=== PATIENT | female | born 1950 | race Caucasian/White ===

== ENCOUNTER → 2016-12-31 | Outpatient (CLI) | payer OTHER ==
[~2016-12-31] VITALS: Ht 157.5 cm; Wt 56.7 kg
--- NOTE | ~2016-12-31 | P ---
[facility] [place] [address] PROCEDURE REPORT Name: ADRIANA CHOI Room #: REG RAMAMax Calles#: [id number] Admission: 12/31/16 Attend Phys: Shaq Suarez Discharge: Date of : 46 Report #: [id number] THIS REPORT FOR: //name// CC: Shaq Woodson MD DATE OF PROCEDURE: 12/31/2016. PROCEDURE PERFORMED: Upper endoscopy with biopsies and balloon dilation of pyloric stricture. HISTORY OF PRESENT ILLNESS: The patient is a 66-year-old female who underwent an EGD on 10/12/2016 for nausea, vomiting, weight loss in early satiety, upper endoscopy that day showed a gastric ulcer, large amount of food within the stomach as well as a pyloric stricture. The scope was not able to pass, was able to dilate with a 10, 11, 12 mm balloon, biopsies were negative for H. pylori. The patient had a large amount of vomiting while she was sedated after the balloon dilation was performed. She then underwent a gastric emptying study, which was abnormal and an upper GI study that showed mild dysmotility, retropulsion of , pylorus shows slight pouching which may represent an old ulcer, four duodenal diverticula were noted. I had a long discussion with the patient and her daughter in the office on 11/18/2016. She is feeling better. She gain 10 pounds, but was still having early satiety, we discussed proceeding with repeat EGD to verify ulcer healing as well as reassessing pyloric stricture because of her vomiting, the plan was to do it under general anesthesia. DESCRIPTION OF PROCEDURE: The risks and benefits of the procedure were explained to the patient, those risks including but not limited to bleeding, perforation, the risk of sedation. She understood these risks and gave informed consent. Sedation was given using general anesthesia. Next, using a standard Fujinon upper endoscope, the scope was placed in the patient's mouth and advanced under direct vision through the esophagus, stomach, once again a large amount of food residual was noted throughout the stomach. The pylorus was identified. There was a stricture again noted. I was unable to pass the scope through this area; therefore, I proceeded with the balloon dilation using a 12, 13-1/2 and 15 mm balloon with a maximum of 15. This was held in place for one minute and then deflated. The scope was then able to easily passed through the pylorus at this point, the duodenal bulb, first and second portion were all normal. The scope was then brought back up into the patient's stomach and near the angularis where the ulcer, large previous ulcer was located. This has improved; however, there was a small amount gastritis with a small ulcer remaining, biopsies were again obtained. At this point, the scope was then slowly withdrawn. The esophagus was normal throughout. The scope was withdrawn and the procedure terminated. The patient tolerated the procedure well. IMPRESSION: [address] [address] PROCEDURE REPORT Name: ADRIANA CHOI Room #: ARASH Calles#: [id number] Admission: 12/31/16 Attend Phys: Shaq Suarez Discharge: Date of : 46 Report #: [id number] 1. Large food residual again noted. 2. Pyloric stricture, status post balloon dilation. 3. Gastric ulcer much improved, but a small amount remains with a mild gastritis. RECOMMENDATIONS: 1. Await biopsy results. 2. Observe the patient post-balloon dilation. 3. I will discuss options such as repeating balloon dilations on a p.r.n. basis versus considering surgical options such as a gastrojejunostomy. Thank you for allowing me to participate in her care. By: [id number] Shaq Regan MD /nt
--- NOTE | ~2016-12-31 | S ---
[facility] [address] [place] [address] SURGICAL PATH RPT PROCEDURE Name: ADRIANA CHOI Room #: REG SHARIFA Vicente.#: [id number] Admission: 12/31/16 Date of : 46 Discharge: Report #: [id number] Path Case #: [id number] PATHOLOGY REPORT DRAFT COLLECTION DATE: 12/31/2016 RECEIVED DATE: 12/31/2016 SPECIMEN(S) RECEIVED: Priti
== END | disposition home or self-care (01) ==
LOC: GI 07:32
DX: K29.70 Gastritis, unspecified, without bleeding (principal); K25.9 Gastric ulcer, unspecified as acute or chronic, without hemorrhage or perforation
CPT/HCPCS: 62110; 70005

== ENCOUNTER → 2020-02-22 | Outpatient (CLI) | payer OTHER ==
[~2020-02-22] MED LIST: MULTI VITAMIN1 EACH PO; REGLAN 10 MG TA10 MG PO
== END ==
LOC: LAB 07:39
PROVIDERS: ATTEND Specialist
DX: Z01.812 Encounter for preprocedural laboratory examination (principal); Z20.828 Contact with and (suspected) exposure to other viral communicable diseases

== ENCOUNTER → 2020-02-27 | Outpatient (CLI) | payer OTHER ==
[~2020-02-27] VITALS: Ht 160 cm; Wt 59.0 kg
--- NOTE | 2020-02-28 17:32 | P ---
[facility] [place] [address] PROCEDURE REPORT Name: ADRIANA CHOI Room #: REG SHARIFA Jules.#: [id number] Admission: 02/27/20 Attend Phys: Shaq Suarez Discharge: Date of : 46 Report #: [id number] THIS REPORT FOR: cc: Cora Degroot MD,Shaq Matute MD, MD ~ CC: Shaq Degroot DATE OF SERVICE: 02/27/2020 PROCEDURE PERFORMED: Upper endoscopy with biopsies and balloon dilation of pyloric stricture. HISTORY OF PRESENT ILLNESS: The patient is a 69-year-old female with a long history of intermittent nausea, vomiting, early satiety. She has a known tight pyloric stricture, benign. She has undergone 2 upper endoscopies with dilation by myself; the first one being in 10/2016. At that time, had large food residual and unfortunately had vomiting during the procedure she was dilated. She also had a large ulcer on her angularis at that time, nonbleeding. Biopsies at that time were negative for H. pylori. We then proceeded with a gastric emptying study, which showed delayed emptying in 10/2016. A repeat upper endoscopy was performed on 12/31/2016. At this time, the patient was intubated prior to the procedure. Balloon dilation was once again performed to a maximum of 15 mm. Her previous ulcer was healing, but still noted. Repeat biopsies were again negative for H. pylori. The patient did fairly well, was seen in the office on 01/22/2020 with similar symptoms of abdominal bloating, intermittent nausea, early satiety. Because of this, we discussed repeating upper endoscopy with balloon dilation, which she presents today. She was on PPI therapy in the past, quit that medication. She is now on Pepcid b.i.d. DESCRIPTION OF PROCEDURE: The risks and benefits of the procedure were explained to the patient, those risks including but not limited to bleeding, perforation and the risk of sedation. She understood these risks and gave informed consent. The patient was given a general anesthesia and intubated prior to the procedure. Next, using a standard Olympus upper endoscope, the scope was placed in the patient's mouth and advanced under direct vision through the esophagus into the stomach. The upper and mid esophagus was normal in appearance. In the distal esophagus at the GE junction, grade B erosive esophagitis was noted. Once again entering the stomach, a large food residual was noted throughout most of the stomach. The pylorus was again identified, which was strictured and very tight. I was not able to pass the scope through the stricture. Next, using 12, 13, 15 balloon, the balloon catheter was advanced through the pyloric stricture without difficulty and several balloon dilations were performed, each holding in place for one minute to a maximum of [facility] [address] [place] [address] PROCEDURE REPORT Name: JIMBOADRIANA B Room #: REG SHARIFA Calles#: [id number] Admission: 02/27/20 Attend Phys: Shaq Suarez Discharge: Date of : 46 Report #: [id number] 15 mm. The balloon was deflated. There was a small amount of bleeding, but this stopped spontaneously. At this point, I was able to advance the scope through the stricture without difficulty. Once again, the stricture appears benign. The first and second portions of the duodenum were normal. The scope was then brought back up into the patient's stomach. Again, at the previous ulcer site, an ulcer was noted on the angularis. This was approximately 1.5 cm clean, white-based. Several biopsies of the edge of the ulcer were obtained again today. At this point, the scope was then withdrawn and the procedure terminated. The patient tolerated the procedure well. IMPRESSION: 1. Tight pyloric stricture similar to previous endoscopy, status post balloon dilation, significant improvement after dilation. The scope was able to pass through this area once the area was dilated. 2. Persistent angularis ulcer again noted. 3. Grade B erosive esophagitis. 4. Large food residual again noted in the stomach consistent with partial gastric outlet obstruction picture. RECOMMENDATIONS: 1. Await biopsy results. 2. Observe the patient post-dilation. 3. Recommend daily PPI therapy instead of Pepcid b.i.d. 4. We will once again discuss options with the patient, may consider surgical gastrojejunostomy. Thank you for allowing me to participate in her care. <ELECTRONICALLY SIGNED> By: Shaq Regan MD 02/28/20 1732 [id number] [id number] Shaq Regan MD /nt
--- NOTE | 2020-03-05 11:07 | PATH ---
[facility] [address] [place] [address] PATHOLOGY RPT PROCEDURE Name: ADRIANA CUEVAS Kayli Room #: REG RAMAMax Vicente.#: [id number] Admission: 02/27/20 Date of : 46 Discharge: Report #: [id number] Path Case #: [id number] [facility] Accession Number: [id number] . 01 Material submitted: . stomach - BIOPSY OF GASTRIC ULCER R/O H. PYLORI . 01 Clinical history: . PYLORIC STRICTURE GASTRIC ULCER, DELAYED DIGESTION . 02 Diagnosis: Stomach "biopsy gastric ulcer", endoscopic biopsy: - Gastric antral and oxyntic mucosa with features of reactive gastropathy (chemical gastritis), with moderate to severe acute and chronic inflammation, edema, and focal mucosal surface erosion. - Negative for intestinal metaplasia, dysplasia, and malignancy. - Negative for Helicobacter pylori. (JIMI:alia; 03/03/2020) MBR 03/05/2020 1027 Local . 02 Electronically signed: . Jan Ferro MD, Pathologist NPI- [id number] . 01 Gross description: . The specimen is received in formalin, labeled "Adriana Cuevas BX of gastric ulcer" and consists of 3 fragments of pink-balbuena tissue measuring between 0.4 x 0.3 cm and 0.5 x 0.4 cm which are entirely submitted in A1. (SDY; 02/28/2020) SYU/SYU 02/28/2020 1317 Local . 02 Microscopic: . Immunohistochemical stain results (properly controlled): Helicobacter pylori (block A1) - negative for organisms. . Special stain results (properly controlled); Trichrome (block A1) - negative for significant fibrous connective tissue deposition. [place] red - negative for apple green birefringence under polarizable light. . (NOEMYK:alia; 03/03/2020) . 02 Pathologist provided ICD-10: K29.50, K25.9 . 02 CPT . [address] [address] PATHOLOGY RPT PROCEDURE Name: ADRIANA CUEVAS Room #: [facility]#: [id number] Admission: 02/27/20 Date of : 46 Discharge: Report #: [id number] Path Case #: [id number] Specimen Comment: A courtesy copy of this report has been sent to [phone] Specimen Comment: [id number] Specimen Comment: Report sent to / DR MARTIN Performed at: 01 [facility] [address] [id number] MD Davis Palencia MD Phone: [phone] Performed at: 02 [facility] [address] [id number] MD Zhou Corado MD Phone: [phone]
== END | disposition home or self-care (01) ==
LOC: GI 06:55
PROVIDERS: ATTEND Specialist
DX: R11.2 Nausea with vomiting, unspecified (principal); K29.50 Unspecified chronic gastritis without bleeding; K29.00 Acute gastritis without bleeding; K22.10 Ulcer of esophagus without bleeding; K31.1 Adult hypertrophic pyloric stenosis; K21.9 Gastro-esophageal reflux disease without esophagitis; Z98.890 Other specified postprocedural states; Z79.899 Other long term (current) drug therapy; Z88.2 Allergy status to sulfonamides; Z88.8 Allergy status to other drugs, medicaments and biological substances
CPT/HCPCS: 62110; 62900; 70005